=== PATIENT | female | born 1945 | race Caucasian/White ===

== ENCOUNTER → 2018-07-07 | Outpatient (CLI) | payer OTHER | PROVIDERS: ATTEND Otolaryngology | DX: R13.10 Dysphagia, unspecified (principal); K44.9 Diaphragmatic hernia without obstruction or gangrene; K21.9 Gastro-esophageal reflux disease without esophagitis | CPT/HCPCS: 74220; 74230; 92611; G8996; G8997; G8998 ==

== ENCOUNTER 2018-07-13 05:38 | Inpatient (IN) | payer OTHER ==
--- NOTE | 2018-07-03 12:09 | ASMTCMCOM ---
CM Note CM Note Notes: Patient has scheduled surgery with Dr Woo 07/13. Her daughter/JONEL Leon called to inform us that they would like patient to discharge to [facility] or [facility]. I explained that we would take note of their request but also have to wait for recommendations from PT/OT/ROVING CARRIER and other providers before making the ultimate determination. Case Management will follow patient post-operatively. Date Signed: 07/03/2018 12:07 PM Electronically Signed By:Tanya Yan RN
[2018-07-13] MEDS ORDERED: ceFAZolin 2 GM/DEXTROSE 100 ML IV ONE (05:56)
[2018-07-13] MEDS ORDERED: ACETAMINOPHEN 500 MG TAB PO ONE (05:56)
[2018-07-13] MEDS ORDERED: GABAPENTIN 300 MG CAP PO ONE (05:56)
[2018-07-13] MEDS ORDERED: LIDOCAINE 1% 2 ML INJ ID PRN (05:57)
[2018-07-13] MEDS ORDERED: LR 1,000 ML IV ONE (05:57)
[2018-07-13] MEDS ORDERED: BUPIVACAINE 0.25% 30 ML SDV ONE (06:39)
[2018-07-13] MEDS ORDERED: CHLORHEXIDINE GLUC HIBICLENS 118 ML BTL TP ONE (06:39)
[2018-07-13] MEDS ORDERED: THROMBIN (BOVINE) 5,000 UNIT VIAL TP ONE ×2 (06:40→09:24)
[2018-07-13] MEDS ORDERED: BACITRACIN 50,000 UNITS/10 ML SYR IRR ONE (06:40)
[2018-07-13] MEDS ORDERED: EPINEPHrine 1 MG/ML INJ ONE (06:41)
[2018-07-13] MEDS ORDERED: CITRIC ACID/SODIUM CITRATE 30 ML UDCUP ONE (06:56)
--- NOTE | 2018-07-13 06:59 | PDHPUP ---
History & Physical Update H&P update statement: This history and physical update is based on an assessment of the patient which was completed after admission or registration (within 24 hours), but prior to the surgery/procedure. H&P update: H&P reviewed & patient examined, no change in patient's condition since H&P completed
[2018-07-13] MEDS ORDERED: DEXMEDETOMIDINE HCL 400 MCG in NS 100 ML IV SCH (07:00)
[2018-07-13] MEDS ORDERED: fentaNYL 100 MCG/2 ML INJ ONE (07:13)
[2018-07-13] MEDS ORDERED: PROPOFOL/EMULSION 500 MG/50 ML BOTTLE IV ONE ×3 (07:13→09:15)
[2018-07-13] MEDS ORDERED: ALBUMIN 5% 250 ML BOTTLE IV ONE (07:23)
[2018-07-13] MEDS ORDERED: ONDANSETRON 4 MG/2 ML VIAL ONE (08:09)
[2018-07-13] MEDS ORDERED: LIDOCAINE 2% 2 ML INJ ONE (08:09)
[2018-07-13] MEDS ORDERED: ROCURONIUM 50 MG/5 ML VIAL ONE (08:09)
[2018-07-13] MEDS ORDERED: SUCCINYLCHOLINE CHLORIDE 200 MG/10 ML SYR IVP ONE (08:09)
[2018-07-13] MEDS ORDERED: RANITIDINE 50 MG/2 ML VIAL ONE (08:09)
[2018-07-13] MEDS ORDERED: SUGAMMADEX SODIUM 200 MG/2 ML VIAL IVP ONE (08:09)
--- NOTE | 2018-07-13 08:14 | PDANEPAE ---
ANE Past Medical History - Cardiovascular History Hx Hypertension: Yes Hx Arrhythmias: No Hx Chest Pain: No Hx Coronary Artery / Peripheral Vascular Disease: No Hx CHF / Valvular Disease: No Hx Palpitations: No - Pulmonary History Hx COPD: No Hx Asthma/Reactive Airway Disease: Yes Hx Recent Upper Respiratory Infection: No Hx Oxygen in Use at Home: No Hx Sleep Apnea: Yes Sleep Apnea Screening Result - Last Documented: Positive Pulmonary History Comment: enviromental triggers asthma asthma - Neurologic History Hx Cerebrovascular Accident: No Hx Seizures: No Hx Dementia: Yes Neurologic History Comment: hx og cognitive changes. advanced dementia - Endocrine History Hx Diabetes: Yes Endocrine History Comment: NIDDM - Renal History Hx Renal Disorders: No - Liver History Hx Hepatic Disorders: No - Neurological & Psychiatric Hx Hx Neurological and Psychiatric Disorders: Yes Neurological / Psychiatric History Comment: decrease sensation in feet - Cancer History Hx Cancer: No - Congenital Disorder History Hx Congenital Disorders: No - GI History Hx Gastrointestinal Disorders: Yes Gastrointestinal History Comment: Bad gerd,coughing and choking - Other Health History Other Health History: loss of hearing left ear - Chronic Pain History Chronic Pain: Yes (neck,and back) - Surgical History Prior Surgeries: arden 2016 ANE Review of Systems Review of Systems: - Exercise capacity METS (RN): 2 METS ANE Patient History - Allergies Allergies/Adverse Reactions: cephalexin [From Keflex] Allergy (Verified 07/13/18 06:10) Rash citalopram [From Celexa] Allergy (Verified 07/13/18 06:10) Other-Enter Comments Penicillins Allergy (Verified 07/13/18 06:10) Hives - Home Medications Home Medications: Acetaminophen [Tylenol ES 500 mg (*)] 1,000 mg PO Q6HRS PRN 06/24/18 [Last Taken 07/12/18] Albuterol [Proventil Inhaler HFA (*)] 2 puffs IH Q4H PRN 06/24/18 [Last Taken ] Aspirin [Aspirin 325 mg (*)] 325 mg PO HS 06/24/18 [Last Taken 07/06/18] Calcitonin [Fortical (*)] 1 spray NASAL DAILY 06/24/18 [Last Taken 07/06/18] Calcium Carbonate [Oyster Shell Calcium 500 mg (*)] 500 mg PO DAILY 06/24/18 [ Last Taken 07/06/18] Cholecalciferol Vit D3 [Vitamin D3 2000 units tab (OTC)] 2,000 units PO DAILY [Last Taken 07/06/18] Fluticasone Nasal [Flonase Nasal Hardin (RX)] 2 sprays NASAL DAILY PRN 06/24/18 [ Last Taken 07/11/18] Gabapentin [Neurontin 300 MG (*)] 300 mg PO HS 06/24/18 [Last Taken 07/12/18] Losartan Potassium [Cozaar 50 mg (*)] 100 mg PO DAILY 06/24/18 [Last Taken 07/12] Melatonin [Melatonin 3 MG (*)] 6 mg PO HS 06/24/18 [Last Taken 07/12/18] Methenamine Nenita [Hiprex 1 gm (*)] 1 gm PO BID 06/24/18 [Last Taken 07/12/18] Mirabegron [Myrbetriq] 50 mg PO DAILY 06/24/18 [Last Taken 07/13/18] Multivitamins [Multivitamin (*)] 1 each PO DAILY 06/24/18 [Last Taken 07/06/18] Omeprazole 40 mg PO DAILY 06/24/18 [Last Taken 07/13/18] Ranitidine HCl [Zantac] 300 mg PO TID 06/24/18 [Last Taken 07/13/18] Rosuvastatin Calcium [Crestor 20mg (*)] 20 mg PO HS 06/24/18 [Last Taken ] Sertraline HCl [Zoloft 100mg (*)] 200 mg PO DAILY 06/24/18 [Last Taken 07/13/18] Trimethoprim [TRIMPEX 100MG (*)] 100 mg PO HS 06/24/18 [Last Taken 07/11/18] buPROPion SR [Wellbutrin 150mg SR (*)] 150 mg PO BID 06/24/18 [Last Taken ] sitaGLIPtin PHOSPHATE [Januvia 100 MG (*)] 100 mg PO DAILY 06/24/18 [Last Taken 07/12/18] - NPO status NPO Since - Liquids (Date): 07/13/18 NPO Since - Liquids (Time): 05:00 NPO Since - Solids (Date): 07/12/18 NPO Since - Solids (Time): 20:30 - Smoking Hx Smoking Status: Never smoked - Family Anes Hx Family Hx Anesthesia Complications: none ANE Labs/Vital Signs - Vital Signs Blood Pressure: 135/64 Heart Rate: 79 Respiratory Rate: 18 O2 Sat (%): 78 Height: 157.48 cm Weight: 90.718 kg ANE Physical Exam - Airway Neck exam: decreased ROM, short neck Mallampati Score: Class 2 Mouth exam: normal dental/mouth exam - Pulmonary Pulmonary: no respiratory distress, no rales or rhonchi, clear to auscultation - Cardiovascular Cardiovascular: regular rate and rhythym, no murmur, rub, or gallop - ASA Status ASA Status: IV ANE Anesthesia Plan Anesthesia Plan: general endotracheal anesthesia Lines/Monitors: arterial line Total IV Anesthesia: Yes
[2018-07-13] MEDS ORDERED: DEXAMETHASONE 4 MG/ML VIAL IVP PRN (08:27)
[2018-07-13] MEDS ORDERED: NALOXONE HCL 0.4 MG/ML INJ IVP PRN ×2 (08:27→11:13)
[2018-07-13] MEDS ORDERED: LR 500 ML IV PRN (08:27)
[2018-07-13] MEDS ORDERED: ONDANSETRON 4 MG/2 ML VIAL IVP PRN ×2 (08:27→11:13)
[2018-07-13] MEDS ORDERED: fentaNYL 100 MCG/2 ML INJ IVP PRN (08:27)
[2018-07-13] MEDS ORDERED: ALBUTEROL 3 ML DEYVIAL IH PRN (08:27)
[2018-07-13] MEDS ORDERED: DIAZEPAM 5 MG/ML 1 ML SYR IVP PRN (08:27)
[2018-07-13] MEDS ORDERED: ONDANSETRON DISINTEGRATING 4 MG TAB PO PRN (11:13)
[2018-07-13] MEDS ORDERED: LACTULOSE 20 GM/30 ML UDCUP PO PRN (11:13)
[2018-07-13] MEDS ORDERED: METHOCARBAMOL 750 MG TAB PO PRN (11:13)
[2018-07-13] MEDS ORDERED: diphenhydrAMINE 25 MG CAP PO PRN (11:13)
[2018-07-13] MEDS ORDERED: BISACODYL 10 MG SUPP PR PRN (11:13)
[2018-07-13] MEDS ORDERED: MAGNESIUM HYDROXIDE 30 ML UDCUP PO PRN (11:13)
[2018-07-13] MEDS ORDERED: morphINE PCA 30 MG/30 ML PCA IV PRN (11:13)
[2018-07-13] MEDS ORDERED: NS 1,000 ML IV SCH (11:15)
[2018-07-13] MEDS ORDERED: FLUTICASONE NASAL 120 SPRAYS/16 GM MDI EACHNARE PRN (11:17)
--- NOTE | 2018-07-13 11:20 | SOAPPROG ---
SOAP Progress Note Assessment/Plan: Assessment: 73 yo F sp C4-T1 ACDF Plan: stable hard collar to 3 N PT/OT KAR x 1 please call with neuro changes 07/13/18 11:19 Subjective: + neck pain, no arm pain Objective: Vital Signs Temp Pulse Resp BP Pulse Ox 36.9 C 79 18 135/64 H 78 L 07/13/18 06:18 07/13/18 08:14 07/13/18 08:14 07/13/18 08:14 07/13/18 08:14 somnolent PERRL, No facial droop ABBY x 4 + light touch ICD10 Worksheet Patient Problems: Problems Problem Status Onset Fusion of spine of cervical region Acute - ICD10 Problem Qualifiers (1) Fusion of spine of cervical region
--- NOTE | 2018-07-13 11:50 | GOP ---
[f rep st] OPERATIVE REPORT DATE OF OPERATION: 07/13/2018 SURGEON: oTnny Cole MD NEUROSURGEON: Tonny Cole MD GRAPHIC MANAGER: Kenneth Henao PA-C ANESTHESIA: General endotracheal. 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 C5-6 and C7-T1 disk herniation and ligamentum flavum hypertrophy causing severe spinal stenosis with C6-7 instability. Progressive myelopathic symptoms. POSTOPERATIVE DIAGNOSIS: Severe multilevel cervical degenerative joint disease with progressive cerv ical spondylitic myelopathy. C5-6 and C7-T1 disk herniation and ligamentum flavum hypertrophy causin g severe spinal stenosis with C6-7 instability. Progressive myelopathic symptoms. PROCEDURE PERFORMED: Complete C5-6, C6-7, and C7-T1 anterior cervical diskectomy and fusion, with 3 structural PEEK interbody spacers, local autograft and demineralized bone matrix. Placement of a 57 mm LnK CastleLoc-P anterior cervical plate from C5 through T1. Use of intraoperative microscopy and fluoroscopy. Partial C6 and C7 vertebral corpectomies. FINDINGS: ESTIMATED BLOOD LOSS: 100 cc. INDICATIONS: Patient is a 73-year-old woman with progressive myelopathic symptoms, secondary to mult ilevel severe degenerative joint disease and cervical spondylitic myelopathy and stenosis who present s for surgical decompression and stabilization after also demonstrated C6-7 instability on flexion-ex tension x-rays. DESCRIPTION OF PROCEDURE: After informed consent was obtained, the patient was taken to the operatin g room and placed in supine position with the head in the halter retractor system. The anterior cerv ical region was prepped and draped in a sterile fashion. After fluoroscopic localization of correct levels, the subcutaneous and intramuscular tissues were infiltrated with local anesthesia. A horizontal linear incision was then created at the level of the C6-7 interspace. This was carried through the platysmal layer using monopolar electrocautery and carried in the avascular plane between the sternocleidomastoid and carotid sheath laterally and the strap muscles, trachea, and esophagus m edially down to the prevertebral fascia, which was carefully incised with Metzenbaum scissors. The C 5-6, C6-7, and C7-T1 levels were identified and re-verified using intraoperative fluoroscopy. The os teophytes were carefully removed and harvested for local autograft. The Kenton distraction pins were serially inserted, first at C5-6, then C6-7, and then C7-T1 with a slight amount of distraction duri ng which time complete diskectomies were performed with preparation of endplates and removal of poste rior longitudinal ligament at each level, along with the posteriorly protruding osteophytes. Note th ere was very severe arthritis that required an extensive amount of drilling and in combination with t he superior and inferior endplate being drilled, approximately 50% of the vertebral bodies at C6 and C7 were removed for partial C6 and C7 vertebral corpectomy in order to achieve adequate decompression . The structural PEEK interbody spacers were placed at C5-6, C6-7, and C7-T1 respectively while the dis traction was across the interspace. This was then released and an appropriately size 57 mm LnK Castl eLoc-P anterior cervical plate was then placed and secured from C5 through T1. Note that the patient had very soft bone and these screw purchase were not great, especially at the C6 and C7 vertebral jone dy levels where there was barely enough bone to the screws in. It was also very difficult to know wh ere to angle screws given the patient's very short neck stature and difficulty with visualizing based on intraoperative films. After verifying good position of the plate screws and interbody spacers using biplanar fluoroscopy, a s best we could, the locking mechanisms were engaged. The remaining demineralized bone issues was pl aced int the anterior holes of the plate at each of the 3 levels. A drain was then placed and the wo und was closed in a layered fashion using interrupted Vicryl sutures, followed by Steri-Strips on the skin. COMPLICATIONS: None. DISPOSITION: The patient is currently in the process being repositioned for extubation present and d ictation. /[id number]/MODL
--- NOTE | 2018-07-13 11:53 | POSTANESTH ---
Post Anesthetic Evaluation Cardiovascular Status: Normal, Stable, Similar to Pre-Op Cond Respiratory Status: Normal, Stable, Similar to Pre-op Cond. Level of Consciousness/Mental Status: Mildly Sleepy, Arousable Pain Control: Adequate, Prn Tx Ordered Nausea/Vomiting Control: Adequate, Prn Tx Ordered Complications Possibly Related to Anesthesia: None Noted
--- NOTE | 2018-07-13 14:09 | PDMN ---
Medical Necessity [place] [facility] [place]ervical Fusion, Anterior: 73 y/o s/p C4-T1 anterior cervical fusion (ACDF) for severe multilevel cervical degernative joint disease w/ progressive cervical spondylitic myelopathy. C5-6 and C7-T1 disk herniationi and ligamentum flavum hypertrophy causing severe spinal stenosis w/ C6-7 instability. Progressive myelopathic sx. Morphine DIRECTOR OF BUSINESS SERVICES ordered , IV fluids and IV antibx continue.
[2018-07-13] MEDS ORDERED: hydrALAZINE 20 MG/ML VIAL IVP PRN (16:25)
[2018-07-13] MEDS: ceFAZolin 2 GM/DEXTROSE 100 ML IV SCH ×2 (16:36→23:28)
--- NOTE | 2018-07-13 17:32 | GCON ---
[f rep st] CONSULTATION DATE OF CONSULTATION: 07/13/2018 REFERRING PHYSICIAN: Tonny Cole MD The patient's primary care provider is Dr. Freddy Restrepo. CHIEF COMPLAINT: Medical management status post surgery for cervical stenosis. 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 She subsequently underwent neurosurgical consultation and racquel stevenson today underwent cervical diskectomy and fusion. The hospitalist service was asked to consult t o assist with her medical issues during this hospitalization. PAST MEDICAL HISTORY: 1. Hypertension. 2. Obstructive sleep apnea on CPAP therapy. 3. Diabetes mellitus type 2. 4. Hyperlipidemia. 5. Recurrent urinary tract infections, on chronic antibiotic therapy. PAST SURGICAL HISTORY: 1. Cervical diskectomy and fusion. 2. Left hip replacement. 3. Left shoulder surgery. 4. Hysterectomy. MEDICATIONS: 1. Aspirin 325 mg daily. 2. Losartan 100 mg daily. 3. Crestor 20 mg nightly. 4. Januvia 100 mg daily. 5. Zoloft 200 mg daily. 6. Bupropion SR 150 mg twice a day. 7. Gabapentin 300 mg nightly. 8. Hiprex 1 tablet twice a day. 9. Myrbetriq 50 mg daily. 10. Trimethoprim 100 mg nightly. 11. Omeprazole 20 mg daily. ALLERGIES: 1. Penicillins. 2. Citalopram. 3. Cephalexin. FAMILY HISTORY: Mother and father are both . Her father at the age of 52 from a massiv e heart attack. He was reportedly a heavy smoker. Mother at an advanced age from sepsis, it so unds like she had underlying Alzheimer's dementia. SOCIAL HISTORY: The patient is . Her a little less than 1 year ago. She has 4 children. She is a nonsmoker. She has been residing independently with home health aides arden t will come in for much of the day with her. Her daughter Jeannie is her medical [id number]-wzspinre. CODE STATUS: Was reviewed during this hospitalization and she is a Full Code status. REVIEW OF SYSTEMS: CONSTITUTIONAL: No complaints of any fevers or chills. ENT: No recent upper re spiratory illnesses. CARDIOVASCULAR: No complaints of any chest pains, palpitations, or syncopal ep isodes. RESPIRATORY: No complaints of shortness of breath or productive cough. GI: No nausea, vom iting, diarrhea, or constipation. : No reports of any difficulty with urination today, but does h ave chronic history of urinary complaints seen by [facility]. NEUROLOGIC: No complaints of any headaches or focal weakness. HEMATOLOGIC: No history of any deep vein thrombosis or pulmonary embol ism. PSYCHIATRIC: She is on SSRI therapy along with bupropion. ENDOCRINE: No history of polyuria or heat intolerance. SKIN: No new skin rashes. MUSCULOSKELETAL: No focal joint pain complaints ot her than her neck. PHYSICAL EXAM: VITAL SIGNS: Temperature 36.6, blood pressure 159/73, heart rate 80, respirations 18 , saturating 94% on 2.5 L nasal cannula. GENERAL: Patient is awake, alert, conversant, oriented, no acute distress. HEENT: Extraocular movements intact. No scleral icterus is noted. NECK: A neck brace is in place. CHEST: Clear to auscultation anteriorly with normal respiratory effort. HEART: Regular rate and rhythm. No murmurs appreciated. ABDOMEN: Soft, nontender, nondistended. : No Malloy catheter in place. EXTREMITIES: No significant pitting edema. No calf pain with palpation. Compression devices in place. NEUROLOGIC: Cranial nerves 2 through 12 appear grossly intact. LABS: Glucose level 104. ASSESSMENT AND PLAN: 1. Elevated blood pressure--we will ensure we have IV blood pressure medications as patient may have some difficulty in taking her oral medications. Will need to see how she does over the coming 24 ho urs. 2. Neck pain--appears well controlled with current pain medications in place. 3. Cervical stenosis--patient is status post diskectomy and fusion. Continue to work with Physical Therapy and Occupational Therapy and Speech and see how she does over the coming days. Patient may n eed inpatient rehab prior to returning home where she was living independently with assistance during the day times. 4. Hypertension--as above. 5. Diabetes mellitus type 2--continue Januvia. Monitor glucose readings. By report, her control lockhart s been good. 6. Hyperlipidemia--continue Crestor. 7. Urinary issues--we will continue with current medications prescribed by Urology. 8. Deep venous thrombosis prophylaxis--compression devices for now. Lovenox or heparin when okay fr om a neurosurgical standpoint. 9. Disposition--likely rehab before returning home. I appreciate the opportunity to help out in this patient's case. We will follow along during this ho spitalization. /[id number]/MODL
[2018-07-13] MEDS: FAMOTIDINE 20 MG TAB PO SCH ×2 (17:59→20:39)
[2018-07-13] MEDS: POLYETHYLENE GLYCOL 3350 17 GM PKT PO SCH ×2 (17:59→20:39)
[2018-07-13] MEDS: ROSUVASTATIN CALCIUM 20 MG TAB PO SCH (20:39)
[2018-07-13] MEDS: GABAPENTIN 300 MG CAP PO SCH (20:39)
[2018-07-13] MEDS: buPROPion SR 150 MG TAB PO SCH (20:39)
[2018-07-13] MEDS: METHENAMINE HIPP 1 GM TAB PO SCH (20:39)
[2018-07-13] MEDS: TRIMETHOPRIM 100 MG TAB PO SCH (20:39)
[2018-07-13] MEDS: SENNOSIDES/DOCUSATE SODIUM TAB PO SCH (20:39)
[2018-07-13] MEDS ORDERED: FAMOTIDINE 20 MG TAB PO SCH (21:00)
[2018-07-13] MEDS: CEPACOL LOZENGE PO PRN (21:38)
[2018-07-14] MEDS: CEPACOL LOZENGE PO PRN (04:29)
[2018-07-14] MEDS: ACETAMINOPHEN 500 MG TAB PO PRN ×2 (05:21→16:41)
[2018-07-14 05:30] LABS: PLATELET COUNT 263 10^3/uL (150-400)
--- NOTE | 2018-07-14 07:24 | SOAPPROG ---
SOAP Progress Note Assessment/Plan: Assessment: POD #1 sp C5-T1 ACDF Doing well this AM. Pain well controlled Patient reports no change in bilateral hand weakness Plan: Continue hard collar Continue KAR drain Pt/OT as tolerated Cervical xrays today Soft texture diet 07/14/18 07:21 Subjective: awake, alert. Pain controlled. Daughter present States her hands feel "the same" as preop Objective: Vital Signs Temp Pulse Resp BP Pulse Ox 37.1 C 101 H 16 132/65 H 94 07/14/18 04:50 07/14/18 04:50 07/14/18 04:50 07/14/18 04:50 07/14/18 04:50 Laboratory Results 07/14/18 04:28 07/14/18 04:28 07/13/18 07/14/18 07/15/18 05:59 05:59 05:59 Intake Total 1754 Output Total 3325 Balance -1571 Neuro: LINDSEY, sens +LT follows commands KAR: 100ml Dressing: CDI ICD10 Worksheet Patient Problems: Problems Problem Status Onset Fusion of spine of cervical region Acute
[2018-07-14] MEDS: SERTRALINE HCL 100 MG TAB PO SCH (08:43)
[2018-07-14] MEDS: buPROPion SR 150 MG TAB PO SCH ×2 (08:44→21:36)
[2018-07-14] MEDS: LOSARTAN POTASSIUM 50 MG TAB PO SCH (08:45)
[2018-07-14] MEDS: METHENAMINE HIPP 1 GM TAB PO SCH ×2 (08:46→21:36)
[2018-07-14] MEDS: FAMOTIDINE 20 MG TAB PO SCH ×3 (08:49→21:36)
[2018-07-14] MEDS: PANTOPRAZOLE SODIUM 40 MG TAB PO SCH (08:50)
[2018-07-14] MEDS: SENNOSIDES/DOCUSATE SODIUM TAB PO SCH ×2 (08:51→21:35)
[2018-07-14] MEDS: POLYETHYLENE GLYCOL 3350 17 GM PKT PO SCH ×3 (08:54→21:35)
[2018-07-14] MEDS: CALCITONIN 200 UNITS/SPRAY INH EACHNARE SCH (10:41)
[2018-07-14] MEDS: Mirabegron [Myrbetriq] 50 MG PO SCH (10:42)
[2018-07-14] MEDS: oxyCODONE IR 5 MG TAB PO PRN ×3 (12:52→18:20)
[2018-07-14] MEDS: DIAZEPAM 5 MG TAB PO PRN ×2 (13:44→13:50)
--- NOTE | 2018-07-14 16:01 | ASMTCMCOM ---
CM Note CM Note Notes: Pt had planned spinal surgery. OT/PT rec inpatient rehab, (rehab consult order is in) voicemail left for admissions staff Lenore Daneils alerting her. PT Hearty reports pt may be interested in [facility], [facility] and referral was sent in [employer]. CM to follow. D/c plan of care: inpatient rehab vs. SNF Date Signed: 07/14/2018 04:00 PM Electronically Signed By:AQUILES Lantigua
--- NOTE | 2018-07-14 19:28 | HOSPPROG ---
Hospitalist Progress Note Assessment/Plan: DIAGNOSES: * hypertension currently well controlled * type 2 diabetes currently well controlled * DVT prophylaxis on appropriate measures * hyperlipidemia on Crestor PLANS: She appears quite stable postoperative, we will follow closely and make recommendations as indicated No further specific recommendations at this time SUBJECTIVE: Some neck pain but doing better with analgesic Has been up and walking today Eating well No shortness of breath fevers or chest symptoms OBJECTIVE Vitals reviewed: Occasional mild hypertension otherwise normal without fever Exam: alert oriented looks actually fairly comfortable, smiling and very conversant skin warm dry color ok resps not labored lungs clear BSs heart regular abd soft nondistended nontender, bowel sounds present limbs warm, no edema iv site ok Laboratory data: Sugars in good range at this time Objective: Vital Signs Temp Pulse Resp BP Pulse Ox 37.1 C 86 16 151/79 H 94 07/14/18 16:00 07/14/18 16:00 07/14/18 16:00 07/14/18 16:00 07/14/18 16:00 Laboratory Results 07/14/18 04:28 07/14/18 04:28 07/13/18 07/14/18 07/15/18 06:59 06:59 06:59 Intake Total 1754 2200 Output Total 3325 1100 Balance -1571 1100 ICD10 Worksheet Patient Problems: Problems Problem Status Onset Fusion of spine of cervical region Acute
[2018-07-14] MEDS: ROSUVASTATIN CALCIUM 20 MG TAB PO SCH (21:35)
[2018-07-14] MEDS: GABAPENTIN 300 MG CAP PO SCH (21:36)
[2018-07-14] MEDS: MELATONIN 3 MG TAB PO SCH (21:36)
[2018-07-14] MEDS: TRIMETHOPRIM 100 MG TAB PO SCH (21:36)
[2018-07-14] MEDS: ALBUTEROL 60 PUFFS/8 GM MDI IH PRN (23:11)
[2018-07-15] MEDS: ALBUTEROL 60 PUFFS/8 GM MDI IH PRN (08:31)
--- NOTE | 2018-07-15 08:45 | SOAPPROG ---
SOAP Progress Note Assessment/Plan: Assessment: 73 yo F POD #2 C4-T1 ACDF Plan: stable and doing well overall :) hard collar post op x-rays shows good position of the hardware PT/OT KAR x 1 dc media planner / buyer looking at placement options scd/idalia/lovenox for dvt prophylaxis please call with neuro changes discussed with Dr Woo 07/13/18 11:19 07/15/18 08:42 Subjective: continued neck pain, no arm pain, no new paresthesias Objective: Vital Signs Temp Pulse Resp BP Pulse Ox 36.8 C 92 20 121/81 H 93 07/15/18 08:00 07/15/18 08:38 07/15/18 08:38 07/15/18 08:00 07/15/18 08:38 Laboratory Results 07/14/18 04:28 07/14/18 04:28 07/14/18 07/15/18 07/16/18 05:59 05:59 05:59 Intake Total 1754 2200 200 Output Total 3325 1720 200 Balance -1571 480 0 AAOx4, +FC PERRL, EOMI, no facial droop 5/5 + light touch C/D/I ICD10 Worksheet Patient Problems: Problems Problem Status Onset Fusion of spine of cervical region Acute - ICD10 Problem Qualifiers (1) Fusion of spine of cervical region
[2018-07-15] MEDS: buPROPion SR 150 MG TAB PO SCH ×2 (10:49→21:12)
[2018-07-15] MEDS: CALCITONIN 200 UNITS/SPRAY INH EACHNARE SCH (10:50)
[2018-07-15] MEDS: METHENAMINE HIPP 1 GM TAB PO SCH ×2 (10:50→21:09)
[2018-07-15] MEDS: FAMOTIDINE 20 MG TAB PO SCH ×3 (10:50→21:12)
[2018-07-15] MEDS: PANTOPRAZOLE SODIUM 40 MG TAB PO SCH (10:51)
[2018-07-15] MEDS: Mirabegron [Myrbetriq] 50 MG PO SCH (10:51)
[2018-07-15] MEDS: SERTRALINE HCL 100 MG TAB PO SCH (10:52)
[2018-07-15] MEDS: POLYETHYLENE GLYCOL 3350 17 GM PKT PO SCH ×3 (10:52→21:12)
[2018-07-15] MEDS: SENNOSIDES/DOCUSATE SODIUM TAB PO SCH ×2 (10:52→21:11)
[2018-07-15] MEDS: LOSARTAN POTASSIUM 50 MG TAB PO SCH (11:01)
--- NOTE | 2018-07-15 14:16 | ASMTCMCOM ---
CM Note CM Note Notes: Pt no longer wants to consider [facility] inpatient rehab for d/c, thinks she may need more time. Pt accepted at [facility], her first choice SNF. D/c plan of care: [facility] SNF Date Signed: 07/15/2018 02:16 PM Electronically Signed By:AQUILES Lantigua
--- NOTE | 2018-07-15 14:46 | HOSPPROG ---
Hospitalist Progress Note Assessment/Plan: #HTN -Well controlled -no changes at this time #DM -glucose well controlled -no changes at this time #Cervical Myelopathy s/p surgery -per NS #Generalized weakness -working with PT -Awaiting PT's reccs on placement needs The pt is doing well from her HTN and DM management Thank you for this consult Subjective: no cp or sob. no n/v. BP is ok. Objective: Vital Signs Temp Pulse Resp BP Pulse Ox 36.8 C 104 H 14 155/73 H 90 L 07/15/18 12:00 07/15/18 12:00 07/15/18 12:00 07/15/18 12:00 07/15/18 12:00 Laboratory Results 07/14/18 04:28 07/14/18 04:28 07/14/18 07/15/18 07/16/18 05:59 05:59 05:59 Intake Total 1754 2200 400 Output Total 3325 1720 200 Balance -1571 480 200 - Physical Exam Constitutional: no apparent distress Eyes: PERRL Ears, Nose, Mouth, Throat: moist mucous membranes Cardiovascular: regular rate and rhythym Respiratory: no respiratory distress, No reduced air movement Gastrointestinal: normoactive bowel sounds Skin: warm Musculoskeletal: generalized weakness Neurologic: AAOx3 Psychiatric: interacting appropriately, not anxious, not encephalopathic Lymph, Heme, Immunologic: No petechiae ICD10 Worksheet Patient Problems: Problems Problem Status Onset Fusion of spine of cervical region Acute
[2018-07-15] MEDS: oxyCODONE IR 5 MG TAB PO PRN (21:08)
[2018-07-15] MEDS: CEPACOL LOZENGE PO PRN (21:08)
[2018-07-15] MEDS: ROSUVASTATIN CALCIUM 20 MG TAB PO SCH (21:09)
[2018-07-15] MEDS: ACETAMINOPHEN 500 MG TAB PO PRN (21:09)
[2018-07-15] MEDS: MELATONIN 3 MG TAB PO SCH (21:11)
[2018-07-15] MEDS: GABAPENTIN 300 MG CAP PO SCH (21:11)
[2018-07-15] MEDS: TRIMETHOPRIM 100 MG TAB PO SCH (21:12)
--- NOTE | 2018-07-16 07:26 | SOAPPROG ---
SOAP Progress Note Assessment/Plan: Assessment: 73 yo F POD #3 C4-T1 ACDF Plan: stable and doing well overall :) hard collar post op x-rays shows good position of the hardware PT/OT KAR x 1, will remove today dc mechanical planner looking at placement options scd/idalia/lovenox for dvt prophylaxis transfer to [facility] rehab today please call with neuro changes discussed with Dr Woo 07/13/18 11:19 07/15/18 08:42 07/16/18 07:23 07/16/18 07:26 Subjective: neck pain improving, no weakness. Objective: Vital Signs Temp Pulse Resp BP Pulse Ox 36.4 C 93 17 116/64 92 07/16/18 03:55 07/16/18 03:55 07/16/18 03:55 07/16/18 03:55 07/16/18 03:55 Laboratory Results 07/14/18 04:28 07/14/18 04:28 07/15/18 07/16/18 07/17/18 05:59 05:59 05:59 Intake Total 2200 1100 Output Total 1720 910 Balance 480 190 AAOX4, +FC PERRL, EOMI, no facial droop 5/5 + light touch C/D/I ICD10 Worksheet Patient Problems: Problems Problem Status Onset Fusion of spine of cervical region Acute - ICD10 Problem Qualifiers (1) Fusion of spine of cervical region
[2018-07-16] MEDS ORDERED: ENOXAPARIN 40 MG/0.4 ML SYR SC SCH (09:00)
[2018-07-16] MEDS: buPROPion SR 150 MG TAB PO SCH (10:03)
[2018-07-16] MEDS: FAMOTIDINE 20 MG TAB PO SCH (10:04)
[2018-07-16] MEDS: SENNOSIDES/DOCUSATE SODIUM TAB PO SCH (10:04)
[2018-07-16] MEDS: PANTOPRAZOLE SODIUM 40 MG TAB PO SCH (10:04)
[2018-07-16] MEDS: POLYETHYLENE GLYCOL 3350 17 GM PKT PO SCH (10:04)
[2018-07-16] MEDS: METHENAMINE HIPP 1 GM TAB PO SCH (10:04)
[2018-07-16] MEDS: ACETAMINOPHEN 500 MG TAB PO PRN (10:05)
[2018-07-16] MEDS: SERTRALINE HCL 100 MG TAB PO SCH (10:05)
[2018-07-16] MEDS: LOSARTAN POTASSIUM 50 MG TAB PO SCH (10:09)
[2018-07-16] MEDS: CEPACOL LOZENGE PO PRN (10:17)
[2018-07-16] MEDS: Mirabegron [Myrbetriq] 50 MG PO SCH (10:33)
[2018-07-16] MEDS: CALCITONIN 200 UNITS/SPRAY INH EACHNARE SCH (10:33)
--- NOTE | 2018-07-16 10:56 | HOSPPROG ---
Hospitalist Progress Note Assessment/Plan: #HTN: BP mostly controlled and near goal SBP<150 - Continue current regimen, no changes #DM: Glucose well controlled - No changes at this time #Cervical Myelopathy s/p surgery - Per NS #Generalized weakness - Working with PT - PT recommending SNF - patient to discharge to [facility]. Ok to discharge from medicine stand point. Subjective: Feeling well, no complaints. Wondering when she is going to rehab. Objective: Vital Signs Temp Pulse Resp BP Pulse Ox 36.9 C 89 16 122/63 H 91 L 07/16/18 07:45 07/16/18 07:45 07/16/18 07:45 07/16/18 10:09 07/16/18 07:45 Laboratory Results 07/14/18 04:28 07/14/18 04:28 07/15/18 07/16/18 07/17/18 05:59 05:59 05:59 Intake Total 2200 1100 500 Output Total 1720 910 Balance 480 190 500 - Physical Exam Constitutional: no apparent distress, appears nourished, not in pain Eyes: PERRL, anicteric sclera, EOMI Ears, Nose, Mouth, Throat: moist mucous membranes, hearing normal, other (neck in brace) Respiratory: no respiratory distress Skin: no rashes or abrasions, no fluctuance, no induration Neurologic: AAOx3 Psychiatric: interacting appropriately, not anxious, not encephalopathic, thought process linear ICD10 Worksheet Patient Problems: Problems Problem Status Onset Fusion of spine of cervical region Acute
[2018-07-16 11:39] VITALS: BP 123/67
--- NOTE | 2018-07-16 12:43 | PDIAF ---
- Diagnosis Code Status: Full Code - Medication Management Discharge Medications: Medications to Continue on Transfer Acetaminophen [Tylenol ES 500 mg (*)] 1,000 mg PO Q6HRS PRN 06/24/18 [Last Taken 07/12/18] Albuterol [Proventil Inhaler HFA (*)] 2 puffs IH Q4H PRN 06/24/18 [Last Taken ] Calcitonin [Fortical (*)] 1 spray NASAL DAILY 06/24/18 [Last Taken 07/06/18] Calcium Carbonate [Oyster Shell Calcium 500 mg (*)] 500 mg PO DAILY 06/24/18 [ Last Taken 07/06/18] Cholecalciferol Vit D3 [Vitamin D3 2000 units tab (OTC)] 2,000 units PO DAILY [Last Taken 07/06/18] Fluticasone Nasal [Flonase Nasal [place]] 2 sprays NASAL DAILY PRN 06/24/18 [Last Taken 07/11/18] Gabapentin [Neurontin 300 MG (*)] 300 mg PO HS 06/24/18 [Last Taken 07/12/18] Losartan Potassium [Cozaar 50 mg (*)] 100 mg PO DAILY 06/24/18 [Last Taken 07/12] Melatonin [Melatonin 3 MG (*)] 6 mg PO HS 06/24/18 [Last Taken 07/12/18] Methenamine Nenita [Hiprex 1 gm (*)] 1 gm PO BID 06/24/18 [Last Taken 07/12/18] Mirabegron [Myrbetriq] 50 mg PO DAILY 06/24/18 [Last Taken 07/13/18] Multivitamins [Multivitamin (*)] 1 each PO DAILY 06/24/18 [Last Taken 07/06/18] Omeprazole 40 mg PO DAILY 06/24/18 [Last Taken 07/13/18] Ranitidine HCl [Zantac] 300 mg PO TID 06/24/18 [Last Taken 07/13/18] Rosuvastatin Calcium [Crestor 20mg (*)] 20 mg PO HS 06/24/18 [Last Taken ] Sertraline HCl [Zoloft 100mg (*)] 200 mg PO DAILY 06/24/18 [Last Taken 07/13/18] Trimethoprim [TRIMPEX 100MG (*)] 100 mg PO HS 06/24/18 [Last Taken 07/11/18] buPROPion SR [Wellbutrin 150mg SR (*)] 150 mg PO BID 06/24/18 [Last Taken ] sitaGLIPtin PHOSPHATE [Januvia 100 MG (*)] 100 mg PO DAILY 06/24/18 [Last Taken 07/12/18] Benzocaine/Menthol / [Cepacol Lozenge] 1 ea PO PRN PRN lozenge 07/16/18 [ Last Taken Unknown] Enoxaparin [Lovenox 40 MG (*)] 40 mg SC DAILY syr 07/16/18 [Last Taken Unknown] Methocarbamol [Robaxin 750 mg (*)] 750 mg PO QID PRN tab 07/16/18 [Last Taken Unknown] oxyCODONE IR [Oxycodone Ir (*)] 5 - 10 mg PO Q4HRS PRN tab 07/16/18 [Last Taken Unknown] Discharge Medications: Refer to the Discharge Home Medication list for PRN reason. PICC Care - Routine: N/A - Orders Services needed: Registered Nurse, Physical Therapy, Occupational Therapy Diet Recommendation: no restrictions on diet Diet Texture: Regular Texture Diet, Thin Liquids, Meds Whole in Puree, Meds Crushed in Puree Equipment: hard collar at all times Additional Instructions: discharge with cervical fusion post op instructions follow up with [facility] in 1-2 weeks, to schedule post op appointment. hard collar at all times - Follow Up Care Current Providers and Referrals: Freddy Restrepo [Primary Care Provider] -
--- NOTE | 2018-07-16 15:36 | ASMTLACE ---
LACE Length of stay for Answers: 4-6 days current admission Acuity / Level of Answers: Yes Care: Did the patient have an inpatient admission? Comorbidities - select Answers: Dementia all that apply Diabetes (uncontrolled or controlled) Opioid dependence / Chronic pain Other Notes: HTN; GERD # of Emergency department Answers: 0 visits in the last 6 months Score: 16 Date Signed: 07/16/2018 03:35 PM Electronically Signed By:AQUILES Lantigua
--- NOTE | 2018-07-16 15:38 | ASMTCMCOM ---
CM Note CM Note Notes: Pt medically stable for d/c to [facility]. Orders sent in Allscripts. WC transport scheduled by Viki with [facility]. Date Signed: 07/16/2018 03:37 PM Electronically Signed By:AQUILES Lantigua
--- NOTE | 2018-07-21 09:21 | GDS ---
ADMISSION DIAGNOSIS: Cervical degenerative joint disease and stenosis. DISCHARGE DIAGNOSIS: Status post C5-6, C6-7, C7-T1 anterior cervical diskectomy and fusion. HISTORY AND PHYSICAL: Please see admission history and physical. COURSE: Patient is a 73-year-old female who was admitted to [facility] on 07/13/2018 . She was taken to the operating room where she underwent a C5-6, C6-7 and C7-T1 anterior cervical d iskectomy and fusion. There were no intraoperative complications and she was admitted to the floor f or observation. On the floor, she was tolerating a regular diet, and her pain was controlled with p. o. pain medications. She was discharged to [facility] in stable condition on 07/16/2018. Paolanani onel was discharged with cervical fusion instructions. I recommended she return for neurosurgical foll owup appointment in 10-14 days. /[id number]/MODL
== END 2018-07-16 16:15 | DRG 472 ==
LOC: F3N 05:38 → F2N 09:27 → F3N 13:00
PROVIDERS: ADMIT Neurological Surgery; ATTEND Neurological Surgery
PROC: 3E0U0GB Introduction of Recombinant Bone Morphogenetic Protein into Joints, Open Approach (ICD-10-PCS; principal; 2018-07-13 07:15)
PROC: 0RB30ZZ Excision of Cervical Vertebral Disc, Open Approach (ICD-10-PCS; principal; 2018-07-13 07:15)
PROC: 0RG40A0 Fusion of Cervicothoracic Vertebral Joint with Interbody Fusion Device, Anterior Approach, Anterior Column, Open Approach (ICD-10-PCS; principal; 2018-07-13 07:15)
PROC: 01N10ZZ Release Cervical Nerve, Open Approach (ICD-10-PCS; principal; 2018-07-13 07:15)
PROC: 0RB50ZZ Excision of Cervicothoracic Vertebral Disc, Open Approach (ICD-10-PCS; principal; 2018-07-13 07:15)
PROC: 0RG10A0 Fusion of Cervical Vertebral Joint with Interbody Fusion Device, Anterior Approach, Anterior Column, Open Approach (ICD-10-PCS; principal; 2018-07-13 07:15)
DX: M47.12 Other spondylosis with myelopathy, cervical region (principal); M47.13 Other spondylosis with myelopathy, cervicothoracic region; M50.023 Cervical disc disorder at C6-C7 level with myelopathy; M50.03 Cervical disc disorder with myelopathy, cervicothoracic region; E11.9 Type 2 diabetes mellitus without complications; I10 Essential (primary) hypertension; K21.9 Gastro-esophageal reflux disease without esophagitis; G47.33 Obstructive sleep apnea (adult) (pediatric); E78.5 Hyperlipidemia, unspecified; Z96.642 Presence of left artificial hip joint; Z87.440 Personal history of urinary (tract) infections
CPT/HCPCS: 92526-GN; 92610-GN; 97110-GP; 97116-GP; 97161-GP; 97166-GO; 97530-GP; 97535-GO; C1713; G8978-GP-CK; G8979-GP-CJ; G8987-GO-CL; G8988-GO-CJ; G8996-GN-CI; G8997-GN-CI; J0171; J0330; J0690; J1650; J2405; J2704; J2780; J3010; P9041

== ENCOUNTER 2018-10-19 14:00 | Inpatient (IN) | payer OTHER ==
[2018-11-27 16:12] LABS: PLATELET COUNT 300 10^3/uL (150-400)
[2018-11-30] MEDS ORDERED: ACETAMINOPHEN 500 MG TAB PO ONE (06:38)
[2018-11-30] MEDS ORDERED: ceFAZolin 2 GM/DEXTROSE 100 ML IV ONE (06:38)
[2018-11-30] MEDS ORDERED: LR 1,000 ML IV ONE (06:39)
[2018-11-30] MEDS ORDERED: CEFAZOLIN 2 GM/DEXTROSE/100 ML BAG IV ONE (06:49)
[2018-11-30] MEDS ORDERED: BUPIVACAINE 0.25% 30 ML SDV ONE (07:56)
[2018-11-30] MEDS ORDERED: THROMBIN (BOVINE) 5,000 UNIT VIAL TP ONE (07:56)
[2018-11-30] MEDS ORDERED: BUPIVACAINE/EPI 0.25% 30 ML SDV ONE ×2 (07:56→11:07)
[2018-11-30] MEDS ORDERED: BACITRACIN 50,000 UNITS/10 ML SYR IRR ONE (07:56)
[2018-11-30] MEDS ORDERED: BACITRACIN ZINC 0.5 OZ OINTTUBE TP ONE (07:57)
[2018-11-30] MEDS ORDERED: POVIDONE-IODINE 30 GM OINTTUBE TP ONE (07:57)
[2018-11-30] MEDS ORDERED: CHLORHEXIDINE GLUC HIBICLENS 118 ML BTL TP ONE (07:57)
[2018-11-30] MEDS ORDERED: DEXMEDETOMIDINE HCL 400 MCG in NS 100 ML IV SCH (08:00)
[2018-11-30] MEDS ORDERED: TRANEXAMIC ACID 1,000 MG in NS 100 ML IV ONE (08:27)
[2018-11-30] MEDS ORDERED: PROPOFOL/EMULSION 500 MG/50 ML BOTTLE IV ONE ×2 (08:41→11:03)
[2018-11-30] MEDS ORDERED: PROPOFOL 200 MG/20 ML VIAL ONE (08:41)
[2018-11-30] MEDS ORDERED: fentaNYL 100 MCG/2 ML INJ ONE ×3 (08:41→13:33)
--- NOTE | 2018-11-30 08:41 | PDANEPAE ---
ANE Past Medical History - Cardiovascular History Hx Hypertension: Yes Hx Arrhythmias: No Hx Chest Pain: No Hx Coronary Artery / Peripheral Vascular Disease: No Hx CHF / Valvular Disease: No Hx Palpitations: No Cardiovascular History Comment: high cholesterol - Pulmonary History Hx COPD: No Hx Asthma/Reactive Airway Disease: Yes Hx Recent Upper Respiratory Infection: No Hx Oxygen in Use at Home: No Hx Sleep Apnea: Yes Sleep Apnea Screening Result - Last Documented: Positive Pulmonary History Comment: enviromental triggers asthma. coughing causes wheezing - Neurologic History Hx Cerebrovascular Accident: No Hx Seizures: No Hx Dementia: Yes Neurologic History Comment: hx og cognitive changes. advanced dementia - Endocrine History Hx Diabetes: Yes Endocrine History Comment: NIDDM - Renal History Hx Renal Disorders: No - Liver History Hx Hepatic Disorders: No - Neurological & Psychiatric Hx Hx Neurological and Psychiatric Disorders: Yes Neurological / Psychiatric History Comment: decrease sensation in feet. hand weak,poor fine motor control - Cancer History Hx Cancer: No - Congenital Disorder History Hx Congenital Disorders: No - GI History Hx Gastrointestinal Disorders: Yes Gastrointestinal History Comment: Bad gerd/reflux,. coughing and choking. CPAP sleeps in chair/recliner - Other Health History Other Health History: loss of hearing left ear. yeast to abdominal folds - Chronic Pain History Chronic Pain: Yes (neck,and back) - Surgical History Prior Surgeries: arden 2016. cervical fusion 07/15/18 ANE Review of Systems Review of Systems: - Exercise capacity METS (RN): 2 METS ANE Patient History - Allergies Allergies/Adverse Reactions: cephalexin [From Keflex] Allergy (Verified 11/18/18 12:07) Rash citalopram [From Celexa] Allergy (Verified 11/18/18 12:07) Other-Enter Comments Penicillins Allergy (Verified 11/18/18 12:07) Hives - Home Medications Home medications: home medication list seen and reviewed Home Medications: Calcitonin [Fortical (*)] 1 spray NASAL DAILY 06/24/18 [Last Taken 11/23/18] Calcium Carbonate [Oyster Shell Calcium 500 mg (*)] 500 mg PO DAILY 06/24/18 [ Last Taken 11/23/18] Cholecalciferol Vit D3 [Vitamin D3 2000 units tab (OTC)] 2,000 units PO DAILY [Last Taken 11/23/18] Gabapentin [Neurontin 300 MG (*)] 300 mg PO HS 06/24/18 [Last Taken 1 Day Ago ~ 11/29/18] Losartan Potassium [Cozaar 50 mg (*)] 100 mg PO DAILY 06/24/18 [Last Taken 1 Day Ago ~11/29/18] Melatonin [Melatonin 3 MG (*)] 6 mg PO HS 06/24/18 [Last Taken 1 Day Ago ~] Methenamine Nenita [Hiprex 1 gm (*)] 1 gm PO BID 06/24/18 [Last Taken 1 Day Ago ~ 11/29/18] Mirabegron [Myrbetriq] 50 mg PO DAILY 06/24/18 [Last Taken 11/30/18 05:30] Multivitamins [Multivitamin (*)] 1 each PO DAILY 06/24/18 [Last Taken 11/23/18] Omeprazole 40 mg PO DAILY 06/24/18 [Last Taken 11/30/18 05:30] Ranitidine HCl [Zantac] 300 mg PO TID 06/24/18 [Last Taken 11/30/18 05:30] Rosuvastatin Calcium [Crestor 20mg (*)] 20 mg PO HS 06/24/18 [Last Taken 1 Day Ago ~11/29/18] Trimethoprim [TRIMPEX 100MG (*)] 100 mg PO HS 06/24/18 [Last Taken 1 Day Ago ~] sitaGLIPtin PHOSPHATE [Januvia 100 MG (*)] 100 mg PO DAILY 06/24/18 [Last Taken 1 Day Ago ~11/29/18] Donepezil HCl [Aricept 5 MG (*)] 5 mg PO HS 11/11/18 [Last Taken 1 Day Ago ~] buPROPion XL [Wellbutrin Xl] 300 mg PO DAILY 11/11/18 [Last Taken 11/30/18 05:30 ] - NPO status NPO Status: no food or drink >8 hours NPO Since - Liquids (Date): 11/29/18 NPO Since - Liquids (Time): 22:00 NPO Since - Solids (Date): 11/29/18 NPO Since - Solids (Time): 21:00 - Anes Hx Anes Hx: post operative cognitive dysfunction Hx Anesthesia Complications (with details): Family says that after hip surgery under [facility] there was permanent loss of executive function - Smoking Hx Smoking Status: Never smoked - Family Anes Hx Family Hx Anesthesia Complications: none ANE Labs/Vital Signs - Labs Result Diagrams: 11/27/18 15:16 11/27/18 15:16 - Vital Signs Blood Pressure: 124/65 Heart Rate: 70 Respiratory Rate: 16 O2 Sat (%): 94 Height: 160.02 cm Weight: 94.347 kg ANE Physical Exam - Airway Neck exam: FROM, C-collar in place Mallampati Score: Class 2 Mouth exam: normal dental/mouth exam - Pulmonary Pulmonary: clear to auscultation - Cardiovascular Cardiovascular: regular rate and rhythym - ASA Status ASA Status: III ANE Anesthesia Plan Anesthesia Plan: general endotracheal anesthesia Lines/Monitors: arterial line
[2018-11-30] MEDS ORDERED: SUCCINYLCHOLINE CHLORIDE 200 MG/10 ML SYR IVP ONE (08:42)
[2018-11-30] MEDS ORDERED: REMIFENTANIL HCL 1 MG VIAL ONE ×2 (09:01→11:46)
[2018-11-30] MEDS ORDERED: VASOPRESSIN 20 UNIT/ML VIAL ONE (09:56)
[2018-11-30] MEDS ORDERED: PHENYLEPHRINE 10 MG/ML SDV ONE (10:04)
[2018-11-30] MEDS ORDERED: PHENYLEPHRINE HCL 100 MCG/ML SYR ONE ×2 (10:31)
[2018-11-30] MEDS ORDERED: ONDANSETRON 4 MG/2 ML VIAL ONE (12:44)
[2018-11-30] MEDS ORDERED: ceFAZolin 1 GM VIAL ONE ×2 (12:54)
[2018-11-30] MEDS ORDERED: ALBUTEROL 3 ML DEYVIAL IH PRN (12:55)
[2018-11-30] MEDS ORDERED: LABETALOL HCL 5 MG/ML 20 ML MDV IVP PRN (12:55)
[2018-11-30] MEDS ORDERED: PHENYLEPHRINE HCL 100 MCG/ML SYR IVP PRN (12:55)
[2018-11-30] MEDS ORDERED: LR 500 ML IV PRN (12:55)
[2018-11-30] MEDS ORDERED: NALOXONE HCL 0.4 MG/ML INJ IVP PRN (12:55)
[2018-11-30] MEDS ORDERED: MEPERIDINE 25 MG/0.5 ML AMP IVP PRN (12:55)
[2018-11-30] MEDS ORDERED: PROMETHAZINE HCL 25 MG/ML INJ IVP PRN (12:55)
[2018-11-30] MEDS ORDERED: ONDANSETRON 4 MG/2 ML VIAL IVP PRN ×2 (12:55→13:16)
[2018-11-30] MEDS ORDERED: LABETALOL HCL 5 MG/ML 20 ML MDV ONE (13:01)
[2018-11-30] MEDS ORDERED: diphenhydrAMINE 25 MG CAP PO PRN (13:16)
[2018-11-30] MEDS ORDERED: METHOCARBAMOL 750 MG TAB PO PRN (13:16)
[2018-11-30] MEDS ORDERED: ONDANSETRON DISINTEGRATING 4 MG TAB PO PRN (13:16)
[2018-11-30] MEDS ORDERED: LACTULOSE 20 GM/30 ML UDCUP PO PRN (13:16)
[2018-11-30] MEDS ORDERED: MAGNESIUM HYDROXIDE 30 ML UDCUP PO PRN (13:16)
[2018-11-30] MEDS ORDERED: BISACODYL 10 MG SUPP PR PRN (13:16)
--- NOTE | 2018-11-30 13:27 | SOAPPROG ---
COURTNEY Progress Note Assessment/Plan: Assessment: 73 yo F sp C5-T3 posterior instrumentation and fusion Plan: stable to 3N Trustee Of Estate to fit Wood RESIDENTIAL GAS HEAT TECHNICIAN or Yesica brace PT/OT KAR x 1 please call with neuro changes 11/30/18 13:26 Subjective: + neck pain, no arm pain Objective: Vital Signs Temp Pulse Resp BP Pulse Ox 36.6 C 70 16 124/65 H 94 11/30/18 07:06 11/30/18 08:41 11/30/18 08:41 11/30/18 08:41 11/30/18 08:41 Laboratory Results 11/27/18 15:16 11/27/18 15:16 somnolent PERRL, EOMI ABBY x 4 + light touc ICD10 Worksheet Patient Problems: Problems Problem Status Onset Fusion of spine of cervical region Acute
[2018-11-30] MEDS ORDERED: NS 1,000 ML IV SCH (13:30)
[2018-11-30] MEDS: fentaNYL 100 MCG/2 ML INJ IVP PRN ×3 (13:34→14:09)
[2018-11-30] MEDS ORDERED: ceFAZolin 2 GM/DEXTROSE 100 ML IV SCH (14:00)
[2018-11-30] MEDS ORDERED: GABAPENTIN 300 MG CAP PO SCH (14:00)
--- NOTE | 2018-11-30 14:05 | POSTANESTH ---
Post Anesthetic Evaluation Cardiovascular Status: Normal, Stable Respiratory Status: Normal, Stable Level of Consciousness/Mental Status: Can Participate in Eval Pain Control: Adequate, Prn Tx Ordered Nausea/Vomiting Control: Adequate, Prn Tx Ordered Complications Possibly Related to Anesthesia: None Noted
[2018-11-30] MEDS: DIAZEPAM 5 MG/ML 1 ML SYR IVP PRN ×2 (14:12→14:34)
[2018-11-30] MEDS ORDERED: DIAZEPAM 5 MG/ML 1 ML SYR ONE (14:12)
[2018-11-30] MEDS ORDERED: HYDROmorphONE/DILAUDID 2 MG/ML INJ ONE (14:54)
[2018-11-30] MEDS: HYDROmorphONE/DILAUDID 2 MG/ML INJ IVP PRN ×4 (14:55→16:20)
--- NOTE | 2018-11-30 15:04 | PDMN ---
Medical Necessity Medical necessity: Pt meets IP criteria as of 11/30/2018 per and [facility] [id number] Reinsertion of spinal fixation device, C-T3 fusion; Medicare IP only procedure
[2018-11-30] MEDS: POLYETHYLENE GLYCOL 3350 17 GM PKT PO SCH ×2 (16:56→21:01)
[2018-11-30] MEDS: ACETAMINOPHEN 500 MG TAB PO SCH ×2 (17:32→21:01)
[2018-11-30] MEDS: oxyCODONE IR 5 MG TAB PO PRN ×2 (17:44→23:33)
[2018-11-30] MEDS: ceFAZolin 2 GM/DEXTROSE 100 ML IV SCH (17:45)
--- NOTE | 2018-11-30 18:45 | GOP ---
DATE OF OPERATION: 11/30/2018 SURGEON: Tonny Cole MD NEUROSURGEON: Tonny Cole MD NEW ACCOUNTS REPRESENTATIVE: Kenneth Henao PA-C. ANESTHESIA: General endotracheal. PREOPERATIVE DIAGNOSIS: Failed hardware/vertebral body fracture status post C5-T1 anterior cervical diskectomy and arthrodesis. POSTOPERATIVE DIAGNOSIS: Failed hardware/vertebral body fracture status post C5-T1 anterior cervical diskectomy and arthrodesis. PROCEDURE PERFORMED: C5 through T3 posterior segmental (lateral mass screw and pedicle screw) fixati on and posterolateral fusion with local autograft, bone morphogenic protein and morselized allograft. Use of intraoperative microscopy, fluoroscopy, and computer volumetric stereotactic navigation with intraoperative neurophysiologic testing. FINDINGS: ESTIMATED BLOOD LOSS: 150 cc. INDICATIONS: The patient is a 73-year-old woman who underwent a prior C5 to T1 anterior cervical dis kectomy and fusion with instrumentation and subsequently fell and had failure of the hardware and fra cture of the vertebral body at the bottom of the construct, and she presents now for revision. We lockhart d initially planned on reconstructing the surgery anteriorly and then reinforcing it posteriorly but on further evaluation and consideration, she was not having any myelopathic or radicular symptoms fro m the construct failure and fracture and I did not think that we would be able to put new screws in T 1 due to the fracture and T2 was too low and we would not be able to access this without splitting th e sternum and/or clavicle and I felt that this was too invasive for the patient. As such, we decided to leave the anterior construct alone and reinforce it posteriorly and extended down 1 or 2 extra le vels for added strength and to reduce the likelihood of further kyphosis and failure. DESCRIPTION OF PROCEDURE: After informed consent was obtained, after all the above was discussed in great detail with the patient and her family, the patient was positioned prone after baseline neuromo nitoring signals were obtained. The posterior cervical and upper thoracic regions were prepped and d raped in sterile fashion. A midline linear incision was created from approximately C5 through T3. T his was carried down to the fascial layer, which was incised using monopolar electrocautery and dalila ed in the subfascial plane along the spinous process and lamina bilaterally. The patient's anatomy m heather the exposure extremely difficult and it took approximately 2-3 times as long as normal. She was very kyphotic and obese as well, so the angles were very difficult to work with. Once we got everyth ing exposed we tried to verify the correct levels and could not do this with the lateral fluoroscopy so we brought the O-arm neuronavigational system in. At first, a low resolution spin was performed a nd we still could not adequately see the anatomy so a high-resolution spin needed to be performed. F ollowing this, the joints were drilled out and lateral mass screws were placed at C5, C6, and C7 as b est we could, with pedicle screws at T1, T2, and T3. Again, this was very difficult and required mul tiple revisions of the screws. The rods were contoured as such to reduce as much of the kyphosis as possible. I did not feel that she would benefit from a pedicle subtraction osteotomy so I did not co nsider this. Eventually we did get the rods in place. The locking caps were torqued to the specific ations. The C7 screw stimulated slightly low but I performed a repeat O arm 3D reconstructed image a nd the screws appeared to be good and felt that it was in the patient's best interest to leave them i n place. Following placement of the screws and rods, and verification of good position, the remainin g lamina and facet joints were extensively drilled out from C5 to T3 and the local autograft from the drilling, along with bone morphogenic protein and morselized autograft was placed out laterally for posterolateral fusion from C5 to T3. A drain was then placed. The wound was copiously irrigated wit h antibiotic irrigation. The subcutaneous and intramuscular tissues were re-infiltrated with local a nesthesia and the wound was closed in a layered fashion using interrupted Vicryl sutures, followed by Steri-Strips on the skin. COMPLICATIONS: None. DISPOSITION: The patient is currently in the process of being repositioned for extubation. /[id number]/MODL
[2018-11-30] MEDS: METHENAMINE HIPP 1 GM TAB PO SCH (20:53)
[2018-11-30] MEDS: SENNOSIDES/DOCUSATE SODIUM TAB PO SCH (20:54)
[2018-11-30] MEDS: DONEPEZIL HCL 5 MG TAB PO SCH (20:54)
[2018-11-30] MEDS: ROSUVASTATIN CALCIUM 20 MG TAB PO SCH (20:55)
[2018-11-30] MEDS: GABAPENTIN 300 MG CAP PO SCH (20:55)
[2018-11-30] MEDS: FAMOTIDINE 20 MG TAB PO SCH ×2 (23:36→23:37)
[2018-12-01] MEDS: TRIMETHOPRIM 100 MG TAB PO SCH ×2 (00:15→21:21)
[2018-12-01] MEDS: ceFAZolin 2 GM/DEXTROSE 100 ML IV SCH (04:22)
[2018-12-01] MEDS: oxyCODONE IR 5 MG TAB PO PRN (04:26)
[2018-12-01] MEDS: ACETAMINOPHEN 500 MG TAB PO SCH ×3 (05:23→21:20)
[2018-12-01 05:48] LABS: PLATELET COUNT 264 10^3/uL (150-400)
--- NOTE | 2018-12-01 07:20 | SOAPPROG ---
SOAP Progress Note Assessment/Plan: Assessment: 73 yo female POD #1 sp C5-T3 posterior fusion. Doing well this AM. Had some hallucinations overnight felt to be related to Robaxin. Pain well controlled Swallowing fine. Hard collar in place Plan: Continue KAR drain Continue Hard collar PT/OT Xrays today to eval posterior fusion 12/01/18 07:17 Subjective: sitting up in bed. Doing well. Pain well controlled now but was not overnight. Feels like her hands are "better." Denies new numbness, tingling or weakness. Objective: Vital Signs Temp Pulse Resp BP Pulse Ox 36.7 C 51 L 16 156/76 H 92 12/01/18 03:15 12/01/18 03:15 12/01/18 03:15 12/01/18 03:15 12/01/18 03:15 Laboratory Results 12/01/18 05:05 12/01/18 05:05 11/30/18 12/01/18 12/02/18 05:59 05:59 05:59 Intake Total 2280 Output Total 4000 Balance -1720 Dressing: CDI KAR: 150ml Neuro: LINDSEY, Sens +LT speech clear oriented x 4 strength equal l tacker. slight right Deltoid weakness 5-/5 due to prior RTC injury. ICD10 Worksheet Patient Problems: Problems Problem Status Onset Fusion of spine of cervical region Acute
[2018-12-01] MEDS: POLYETHYLENE GLYCOL 3350 17 GM PKT PO SCH ×3 (08:29→21:20)
[2018-12-01] MEDS: LOSARTAN POTASSIUM 50 MG TAB PO SCH (08:30)
[2018-12-01] MEDS: HYDROmorphONE/DILAUDID 4 MG TAB PO PRN ×4 (08:30→21:52)
[2018-12-01] MEDS: SENNOSIDES/DOCUSATE SODIUM TAB PO SCH ×2 (08:32→21:20)
[2018-12-01] MEDS: PANTOPRAZOLE SODIUM 40 MG TAB PO SCH (08:32)
[2018-12-01] MEDS: METHENAMINE HIPP 1 GM TAB PO SCH ×2 (08:33→21:20)
[2018-12-01] MEDS: buPROPion XL 150 MG TAB PO SCH (08:33)
[2018-12-01] MEDS: CALCIUM CARBONATE 500 MG TAB PO SCH (08:33)
[2018-12-01] MEDS: FAMOTIDINE 20 MG TAB PO SCH ×2 (08:42→21:21)
[2018-12-01] MEDS: CYCLOBENZAPRINE 10 MG TAB PO SCH ×3 (08:42→15:06)
[2018-12-01] MEDS: CALCITONIN 200 UNITS/SPRAY INH EACHNARE SCH (10:18)
--- NOTE | 2018-12-01 16:38 | ASMTCMCOM ---
CM Note CM Note Notes: Pt had planned spinal fusion. Pt resides in [place] in [place], has supportive dghtr Shameka. Pt had previous neurosurgery in 2018 and went to [facility] 06/2018. OT rec SNF, PT rec inpatient rehab/SNF. CM to follow. Date Signed: 12/01/2018 04:37 PM Electronically Signed By:AQUILES Lantigua
[2018-12-01] MEDS: GABAPENTIN 300 MG CAP PO SCH (21:20)
[2018-12-01] MEDS: DONEPEZIL HCL 5 MG TAB PO SCH (21:21)
[2018-12-01] MEDS: ROSUVASTATIN CALCIUM 20 MG TAB PO SCH (21:21)
[2018-12-02] MEDS: ACETAMINOPHEN 500 MG TAB PO SCH ×3 (06:13→21:09)
--- NOTE | 2018-12-02 07:49 | SOAPPROG ---
SOAP Progress Note Assessment/Plan: Assessment: 73 yo F POD#2 C5-T3 posterior instrumentation and fusion Plan: stable and doing well post op x-rays look good Reagan MANAGER ACCOUNT MANAGEMENT when out of bed, hard collar in bed PT/OT KAR x 1 please call with neuro changes scd/idalia for dvt prophylaxis seen by Dr Woo this morning. 11/30/18 13:26 12/02/18 07:48 Subjective: continued neck pain, no arm pain, no weakness. Objective: Vital Signs Temp Pulse Resp BP Pulse Ox 36.8 C 82 16 135/78 H 96 12/01/18 23:38 12/01/18 23:38 12/01/18 23:38 12/01/18 23:38 12/01/18 23:38 Laboratory Results 12/01/18 05:05 12/01/18 05:05 12/01/18 12/02/18 12/03/18 05:59 05:59 05:59 Intake Total 2280 1250 Output Total 4000 1590 Balance -1720 -340 AAOx4, +FC PERRL, EOMI, no facial droop 5/5 + light touch C/D/I ICD10 Worksheet Patient Problems: Problems Problem Status Onset Fusion of spine of cervical region Acute
[2018-12-02] MEDS: buPROPion XL 150 MG TAB PO SCH (08:59)
[2018-12-02] MEDS: LOSARTAN POTASSIUM 50 MG TAB PO SCH (08:59)
[2018-12-02] MEDS: POLYETHYLENE GLYCOL 3350 17 GM PKT PO SCH ×3 (08:59→21:08)
[2018-12-02] MEDS: METHENAMINE HIPP 1 GM TAB PO SCH ×2 (09:00→21:08)
[2018-12-02] MEDS: CYCLOBENZAPRINE 10 MG TAB PO SCH ×4 (09:00→21:10)
[2018-12-02] MEDS: SENNOSIDES/DOCUSATE SODIUM TAB PO SCH ×2 (09:00→21:08)
[2018-12-02] MEDS: PANTOPRAZOLE SODIUM 40 MG TAB PO SCH (09:00)
[2018-12-02] MEDS: CALCIUM CARBONATE 500 MG TAB PO SCH (09:00)
[2018-12-02] MEDS: CALCITONIN 200 UNITS/SPRAY INH EACHNARE SCH (09:49)
--- NOTE | 2018-12-02 16:26 | ASMTCMCOM ---
CM Note CM Note Notes: Pt does not qualify for [facility] inpatient rehab, a concern is if she can tolerate 3 hours of therapy daily. Of note: even if pt does progress to being able to tolerate 3 hours daily there likely would be no bed availability at the [facility] inpatient acute. Updated dghtr Shameka who is disappointed but understands, she will talk to her siblings to determine next steps. Shameka states is hesitant to send pt back to [facility] as the nursing care was not adequate. Shameka will talk to [facility] about concerns and consider [facility]. CM to follow. Date Signed: 12/02/2018 04:26 PM Electronically Signed By:AQUILES Lantigua
--- NOTE | 2018-12-02 16:30 | ASMTCMCOM ---
CM Note CM Note Notes: Entered in error Date Signed: 12/03/2018 09:56 AM Electronically Signed By:AQUILES Lantigua
[2018-12-02] MEDS: GABAPENTIN 300 MG CAP PO SCH (21:08)
[2018-12-02] MEDS: DONEPEZIL HCL 5 MG TAB PO SCH (21:08)
[2018-12-02] MEDS: TRIMETHOPRIM 100 MG TAB PO SCH (21:08)
[2018-12-02] MEDS: ROSUVASTATIN CALCIUM 20 MG TAB PO SCH (21:08)
[2018-12-02] MEDS: FAMOTIDINE 20 MG TAB PO SCH (21:08)
[2018-12-03] MEDS: ACETAMINOPHEN 500 MG TAB PO SCH ×3 (05:13→22:20)
[2018-12-03] MEDS: LOSARTAN POTASSIUM 50 MG TAB PO SCH (09:08)
[2018-12-03] MEDS: ENOXAPARIN 40 MG/0.4 ML SYR SC SCH (09:08)
[2018-12-03] MEDS: SENNOSIDES/DOCUSATE SODIUM TAB PO SCH ×2 (09:08→20:19)
[2018-12-03] MEDS: METHENAMINE HIPP 1 GM TAB PO SCH ×2 (09:09→20:18)
[2018-12-03] MEDS: POLYETHYLENE GLYCOL 3350 17 GM PKT PO SCH ×3 (09:09→22:18)
[2018-12-03] MEDS: CYCLOBENZAPRINE 10 MG TAB PO SCH (09:09)
[2018-12-03] MEDS: CALCIUM CARBONATE 500 MG TAB PO SCH (09:09)
[2018-12-03] MEDS: PANTOPRAZOLE SODIUM 40 MG TAB PO SCH (09:09)
[2018-12-03] MEDS: buPROPion XL 150 MG TAB PO SCH (09:09)
[2018-12-03] MEDS: CALCITONIN 200 UNITS/SPRAY INH EACHNARE SCH (09:18)
--- NOTE | 2018-12-03 12:17 | ASMTCMCOM ---
CM Note CM Note Notes: Pt and family decide to d/c to [facility]. Referral sent to [facility] in [employer] and they can accept. D/c plan of care: [facility] Date Signed: 12/03/2018 12:16 PM Electronically Signed By:AQUILES Lantigua
[2018-12-03] MEDS: traMADol 50 MG TAB PO PRN ×2 (13:28→20:19)
[2018-12-03] MEDS: HYDROmorphONE/DILAUDID 4 MG TAB PO PRN (16:54)
[2018-12-03] MEDS: TRIMETHOPRIM 100 MG TAB PO SCH (20:18)
[2018-12-03] MEDS: GABAPENTIN 300 MG CAP PO SCH (20:18)
[2018-12-03] MEDS: FAMOTIDINE 20 MG TAB PO SCH (20:18)
[2018-12-03] MEDS: ROSUVASTATIN CALCIUM 20 MG TAB PO SCH (20:18)
[2018-12-03] MEDS: METHOCARBAMOL 500 MG TAB PO PRN (20:19)
[2018-12-03] MEDS: DONEPEZIL HCL 5 MG TAB PO SCH (20:19)
[2018-12-04] MEDS: ACETAMINOPHEN 500 MG TAB PO SCH (06:11)
[2018-12-04 07:55] VITALS: BP 143/71
--- NOTE | 2018-12-04 08:18 | PDIAF ---
- Diagnosis Code Status: Full Code - Medication Management Discharge Medications: electronically signed and located in the Home Medication List. - Orders Services needed: Registered Nurse, Physical Therapy, Occupational Therapy Diet Recommendation: no restrictions on diet - Follow Up Care Current Providers and Referrals: Doctor Not,On Staff, MD [Primary Care Provider] -
[2018-12-04] MEDS: traMADol 50 MG TAB PO PRN (08:35)
[2018-12-04] MEDS: METHOCARBAMOL 500 MG TAB PO PRN (08:35)
[2018-12-04] MEDS: PANTOPRAZOLE SODIUM 40 MG TAB PO SCH (08:36)
[2018-12-04] MEDS: LOSARTAN POTASSIUM 50 MG TAB PO SCH (08:37)
[2018-12-04] MEDS: METHENAMINE HIPP 1 GM TAB PO SCH (08:37)
[2018-12-04] MEDS: buPROPion XL 150 MG TAB PO SCH (08:37)
[2018-12-04] MEDS: CALCIUM CARBONATE 500 MG TAB PO SCH (08:38)
[2018-12-04] MEDS: SENNOSIDES/DOCUSATE SODIUM TAB PO SCH (08:38)
[2018-12-04] MEDS: POLYETHYLENE GLYCOL 3350 17 GM PKT PO SCH (08:39)
[2018-12-04] MEDS: ENOXAPARIN 40 MG/0.4 ML SYR SC SCH (08:39)
[2018-12-04] MEDS: CALCITONIN 200 UNITS/SPRAY INH EACHNARE SCH (08:40)
--- NOTE | 2018-12-04 09:16 | NEUSURGPN ---
Assessment/Plan: Assessment: 73 yo F POD#4 C5-T3 posterior instrumentation and fusion Plan: stable and doing well post op x-rays look good Drew MANAGER ERP when out of bed, hard collar in bed PT/OT please call with neuro changes scd/idalia for dvt prophylaxis Rehab planning Discussed with Dr. Woo Subjective: Pain improved. Objective: NAD A&Ox3 MAEx4 5/5 and equal in BUE and BLE Incision c/d/i - Physician Discussed Patient with DrAurora: [facility] Neurosurgery Physical Exam - Vitals, I&O, Labs I and O 12/03/18 12/04/18 12/05/18 05:59 05:59 05:59 Intake Total 2050 500 Output Total 1345 770 Balance 705 -270 Intake: Oral (ml) 2050 500 Output: Urine (ml) 1325 725 Bedside Commode 1325 725 KAR Drain Output (ml) 20 45 Posterior Neck Wilder 20 45 Asher Other: Intake Quantity Yes Sufficient Number of Voids Bedside Commode 2 Incontinence 3 Number of Stools Bedside Commode 1 Vital Signs Temp Pulse Resp BP Pulse Ox 36.4 C 78 17 143/71 H 96 12/04/18 07:54 12/04/18 07:54 12/04/18 07:54 12/04/18 08:37 12/04/18 07:54 Laboratory Results 12/01/18 05:05 12/01/18 05:05 ICD10 Worksheet Patient Problems: Problems Problem Status Onset Fusion of spine of cervical region Acute
--- NOTE | 2018-12-04 09:19 | SOAPPROG ---
Downtime Inpatient MD Late Entry SOAP Note: NOTE FOR 12/03/18 Assessment: 73 yo F POD#3 C5-T3 posterior instrumentation and fusion Plan: stable and doing well post op x-rays look good Garland CUTTING AND BONING SUPERVISOR when out of bed, hard collar in bed PT/OT KAR x 1-will d/c today please call with neuro changes scd/idalia for dvt prophylaxis Will order UA for urinary retention S: Some urinary incontinence but no saddle anesthesia. O:NAD A&Ox3 MAEx4 5/5 and equal in BUE and BLE. Incision c/d/i
--- NOTE | 2018-12-04 10:59 | ASMTCMCOM ---
CM Note CM Note Notes: Pt medically stable for d/c to [facility], orders sent in Allscripts. RN Brunilda to call report. Viki with [facility] scheduled wc transport for 10:30. Pt dghtr at bedside and is updated. Date Signed: 12/04/2018 10:59 AM Electronically Signed By:AQUILES Lantigua
--- NOTE | 2018-12-04 10:59 | ASDISCHSUM ---
Discharge Information Plan Status:SNF Medically Cleared to Leave: Discharge Date:12/04/2018 10:40 AM CM D/C Disposition: ADT D/C Disposition:Nursing Home Facility Projected Discharge Date:12/04/2018 11:00 AM Transportation at D/C: Discharge Delay Reason: Follow-Up Date:12/04/2018 11:00 AM Discharge Slot: Final Diagnosis: Placement Information Referral Type:*Skilled Nursing/SNF Referral ID:[id number] Provider Name:[facility] Address 1:[address] Address 2: City:[place] Selection Factors: State:[place] Patient Contact Information Contact Name:LIAMKLEVER Relationship:Daughter Address: Work Phone: City: [facility] [place] Phone: [facility] Code: Email: Financial Information Financial Class:Medicare Primary Plan Desc:MEDICARE INPATIENT Primary Plan Number:[id number] Secondary Plan Desc:HERBERT VARGAS [id number] Secondary Plan Number:[id number] Assessment Information [facility] CM Progress Note CM Note CM Note Notes: Pt had planned spinal fusion. Pt resides in [place] in [place], [facility]. Pt had previous neurosurgery in 2018 and went to [facility] 06/2018. OT rec SNF, PT rec inpatient rehab/SNF. CM to follow. Date Signed: 12/01/2018 04:37 PM Electronically Signed By:AQUILES Lantigua [facility] CM Progress Note CM Note CM Note Notes: Pt does not qualify for [facility] inpatient rehab, a concern is if she can tolerate 3 hours of therapy daily. Of note: even if pt does progress to being able to tolerate 3 hours daily there likely would be no bed availability at the [facility] inpatient acute. Updated dghtr Shameka who is disappointed but understands, she will talk to her siblings to determine next steps. Shameka states is hesitant to send pt back to [facility] as the nursing care was not adequate. Shameka will talk to [facility] about concerns and consider [facility] [place] [place]. CM to follow. Date Signed: 12/02/2018 04:26 PM Electronically Signed By:AQUILES Lantigua [facility] CM Progress Note CM Note CM Note Notes: Entered in error Date Signed: 12/03/2018 09:56 AM Electronically Signed By:AQUILES Lantigua [facility] CM Progress Note CM Note CM Note Notes: Pt and family decide to d/c to [facility]. Referral sent to [facility] in [employer] and they can accept. D/c plan of care: [facility] Date Signed: 12/03/2018 12:16 PM Electronically Signed By:AQUILES Lantigua LACE MISSYE Length of stay for Answers: 4-6 days current admission Acuity / Level of Answers: Yes Care: Did the patient have an inpatient admission? Comorbidities - select Answers: Coronary Artery Disease all that apply Dementia Diabetes (uncontrolled or controlled) Opioid dependence / Chronic pain Other Notes: HTN # of Emergency department Answers: 0 visits in the last 6 months Score: 18 Date Signed: 12/04/2018 10:57 AM Electronically Signed By:AQUILES Lantigua [facility] CM Progress Note CM Note CM Note Notes: Pt medically stable for d/c to [facility], orders sent in [employer]. NICHOLAS Worley to call report. Viki with [facility] scheduled wc transport for 10:30. Pt dghtr at bedside and is updated. Date Signed: 12/04/2018 10:59 AM Electronically Signed By:AQUILES Lantigua Intervention Information Intervention Type:*IM-Signed Date of Service:12/04/2018 10:36 AM Patient Type:Inpatient Staff Member:Joan Mcnally Hours: Discipline: Severity: Comment:
--- NOTE | 2018-12-09 19:50 | GDS ---
ADMISSION DIAGNOSIS: Displaced cervical plate with cervical fracture. DISCHARGE DIAGNOSIS: Status post C5-T3 posterior instrumentation and fusion. HISTORY AND PHYSICAL: Please see admission history and physical. COURSE: The patient is a 73-year-old female who previously underwent a C5-6, C6 -7, C7-T1 anterior cervical diskectomy and fusion by Dr. Cole. She moved to [place] and subsequently fell. The anterior portion of the plate was displaced off the anterior portions of the vertebral bodies at C6, C7, and T1. She was taken to the operating room on 11/30/18, where she underwent a C5 through T3 posterior instrumentation and fusion. There were no intraoperative complications, and she was admitted to the floor for observation. Postoperative imaging showed good position of the hardware. She made fair progress with physical therapy and occupational therapy. She was discharged on 12/04/18, in stable condition. The patient was discharged with cervical fusion instructions and recommended she return for neurosurgical followup appointment in 10-[address] Cole /[id number]/MODL MTDD
== END 2018-12-04 10:40 | DRG 472 ==
LOC: F3E 11-30 06:04 → F3N 11-30 16:44
PROVIDERS: ADMIT Neurological Surgery; ATTEND Neurological Surgery
PROC: 0RG207J Fusion of 2 or more Cervical Vertebral Joints with Autologous Tissue Substitute, Posterior Approach, Anterior Column, Open Approach (ICD-10-PCS; principal; 2018-11-30 08:30)
PROC: 0RG407J Fusion of Cervicothoracic Vertebral Joint with Autologous Tissue Substitute, Posterior Approach, Anterior Column, Open Approach (ICD-10-PCS; principal; 2018-11-30 08:30)
PROC: 3E0U0GB Introduction of Recombinant Bone Morphogenetic Protein into Joints, Open Approach (ICD-10-PCS; principal; 2018-11-30 08:30)
DX: T84.226A Displacement of internal fixation device of vertebrae, initial encounter (principal); S12.9XXA Fracture of neck, unspecified, initial encounter; W19.XXXA Unspecified fall, initial encounter; M40.202 Unspecified kyphosis, cervical region; M47.12 Other spondylosis with myelopathy, cervical region; Z98.1 Arthrodesis status; F03.90 Unspecified dementia, unspecified severity, without behavioral disturbance, psychotic disturbance, mood disturbance, and anxiety; M19.049 Primary osteoarthritis, unspecified hand; E66.9 Obesity, unspecified; E11.9 Type 2 diabetes mellitus without complications; K21.9 Gastro-esophageal reflux disease without esophagitis
CPT/HCPCS: 97110-GP; 97116-GP; 97162-GP; 97166-GO; 97530-GO; 97530-GP; 97535-GO; C1713; C1762; J0330; J0690; J1170; J1650; J2270; J2370; J2405; J2704; J3010; J3360

== ENCOUNTER → 2018-11-27 | Outpatient (CLI) | payer OTHER | LOC: FIMAGING 16:07 | PROVIDERS: ATTEND Physician Assistant Surgical | DX: M48.04 Spinal stenosis, thoracic region (principal); M43.14 Spondylolisthesis, thoracic region; M43.12 Spondylolisthesis, cervical region; M53.82 Other specified dorsopathies, cervical region ==